=== PATIENT | female | born 1955 | race Caucasian/White ===

== ENCOUNTER 2022-05-31 13:02 | Outpatient (RCR) | payer MEDICARE, BC, SELFPAY ==
[2022-05-31 13:44] LABS: Basophils Percent Auto 0.4 % (0.0-3.0); Eosinophils Percent Auto 0.8 % (0.0-7.0); Hematocrit 38.8 % (33.0-51.0); Hemoglobin* 12.7 gm/dL (12.0-16.0); Immature Granulocytes Abs Auto 2.06 K/uL (0.00-0.30); Lymphocytes Percent Auto 15.1 % (20-44); Mean Corpuscular HGB Conc 33 gm/dL (32-36); Mean Corpuscular Hemoglobin 30 pg (26-34); Mean Corpuscular Volume 91 fL (80-100); Monocytes Percent Auto 25.9 % (0.0-11.0); Neutrophils Percent Auto 49.2 % (42.0-72.0); Platelet Count* 120 K/uL (140-440); RDW Coefficient of Variation % 14.7 % (11.5-15.5); Red Blood Count 4.27 m/uL (4.00-5.20); White Blood Count* 23.96 K/uL (4.50-11.00)
[2022-05-31 13:47] LABS: Albumin* 4.6 g/dL (3.3-5.0); Chloride* 102 mmol/L (96-114)
[2022-05-31 13:48] LABS: Potassium* 3.7 mmol/L (3.6-5.1); Sodium* 138 mmol/L (135-149)
[2022-05-31 13:50] LABS: Aspartate Amino Transferase* 25 U/L (12-35); Bilirubin Total* 0.5 mg/dL (0.1-1.5); Blood Urea Nitrogen* 9 mg/dL (7-30); Carbon Dioxide* 28 mmol/L (20-32); Creatinine* 0.7 mg/dL (0.5-1.5); Estimated Glomerular Filt Rate 94.15; Total Protein* 7.2 g/dL (6.0-8.3)
[2022-05-31 13:51] LABS: Alanine Aminotransferase* 18 U/L (4-35); Alkaline Phosphatase* 68 U/L (40-150); Calcium* 9.6 mg/dL (8.4-10.6); Glucose* 128 mg/dL (60-115); Lactate Dehydrogenase* 536 U/L (313-618)
[2022-05-31 14:17] LABS: Slide Review Acceptable Review (Acceptable); Slide Review Reflex Yes
== END 2022-06-18 23:59 | disposition home or self-care (01) ==
LOC: CCIC 13:02
PROVIDERS: PCP Family Medicine; Visit Provider Internal Medicine Hematology & Oncology
DX: C93.10 Chronic myelomonocytic leukemia not having achieved remission (principal); Z80.6 Family history of leukemia
CPT/HCPCS: 36415; 80053; 83615; 85025; 99212; 99213; 99214

== ENCOUNTER 2023-01-24 11:00 | Outpatient (RCR) | payer MEDICARE, BC, SELFPAY ==
[2022-08-01 09:17] LABS: Basophils Percent Auto 0.5 % (0.0-3.0); Eosinophils Percent Auto 0.7 % (0.0-7.0); Hematocrit 40.3 % (33.0-51.0); Hemoglobin* 13.3 gm/dL (12.0-16.0); Immature Granulocytes Abs Auto 2.49 K/uL (0.00-0.30); Lymphocytes Percent Auto 14.5 % (20-44); Mean Corpuscular HGB Conc 33 gm/dL (32-36); Mean Corpuscular Hemoglobin 30 pg (26-34); Mean Corpuscular Volume 90 fL (80-100); Monocytes Percent Auto 30.5 % (0.0-11.0); Platelet Count* 124 K/uL (140-440); RDW Coefficient of Variation % 14.8 % (11.5-15.5)
[2022-08-01 09:34] LABS: Albumin* 4.8 g/dL (3.3-5.0); Chloride* 103 mmol/L (96-114)
[2022-08-01 09:35] LABS: Potassium* 4.1 mmol/L (3.6-5.1); Sodium* 139 mmol/L (135-149)
[2022-08-01 09:36] LABS: Slide Review Reflex No; White Blood Count* 28.21 K/uL (4.50-11.00)
[2022-08-01 09:37] LABS: Aspartate Amino Transferase* 22 U/L (12-35); Bilirubin Total* 0.4 mg/dL (0.1-1.5); Blood Urea Nitrogen* 13 mg/dL (7-30); Carbon Dioxide* 26 mmol/L (20-32); Creatinine* 0.7 mg/dL (0.5-1.5); Estimated Glomerular Filt Rate 94 ml/min; Total Protein* 8.1 g/dL (6.0-8.3)
[2022-08-01 09:38] LABS: Alanine Aminotransferase* 16 U/L (4-35); Alkaline Phosphatase* 68 U/L (40-150); Calcium* 9.4 mg/dL (8.4-10.6); Glucose* 104 mg/dL (60-115); Lactate Dehydrogenase* 496 U/L (313-618)
--- NOTE | 2022-08-01 12:17 | ONC.NURNOTE ---
results reviewed with Camille HE noted next appts planned for Nov will forward for Dr Guzman review tomorrow
[2022-10-04 10:44] LABS: Basophils Percent Auto 0.5 % (0.0-3.0); Eosinophils Percent Auto 0.8 % (0.0-7.0); Hematocrit 41.1 % (33.0-51.0); Hemoglobin* 13.5 gm/dL (12.0-16.0); Immature Granulocytes Pct Auto 9.8 %; Lymphocytes Percent Auto 14.3 % (20-44); Mean Corpuscular HGB Conc 33 gm/dL (32-36); Mean Corpuscular Hemoglobin 30 pg (26-34); Mean Corpuscular Volume 91 fL (80-100); Monocytes Percent Auto 29.9 % (0.0-11.0); Neutrophils Percent Auto 44.7 % (42.0-72.0); Platelet Count* 142 K/uL (140-440); RDW Coefficient of Variation % 14.5 % (11.5-15.5); Red Blood Count 4.52 m/uL (4.00-5.20)
[2022-10-04 11:09] LABS: Slide Review Reflex Yes; White Blood Count* 27.31 K/uL (4.50-11.00)
[2022-10-04 11:10] LABS: Slide Review Acceptable Review (Acceptable)
[2022-10-04 11:13] LABS: Albumin* 4.9 g/dL (3.3-5.0); Chloride* 103 mmol/L (96-114); Potassium* 4.2 mmol/L (3.6-5.1); Sodium* 140 mmol/L (135-149)
[2022-10-04 11:16] LABS: Alanine Aminotransferase* 22 U/L (4-35); Alkaline Phosphatase* 72 U/L (40-150); Aspartate Amino Transferase* 26 U/L (12-35); Bilirubin Total* 0.5 mg/dL (0.1-1.5); Blood Urea Nitrogen* 13 mg/dL (7-30); Carbon Dioxide* 29 mmol/L (20-32); Creatinine* 0.7 mg/dL (0.5-1.5); Estimated Glomerular Filt Rate 94 ml/min; Glucose* 96 mg/dL (60-115); Lactate Dehydrogenase* 213 U/L (120-246); Total Protein* 8.1 g/dL (6.0-8.3)
[2022-11-29 11:12] LABS: Basophils Percent Auto 0.5 % (0.0-3.0); Eosinophils Percent Auto 0.7 % (0.0-7.0); Hematocrit 39.1 % (33.0-51.0); Hemoglobin* 12.9 gm/dL (12.0-16.0); Immature Granulocytes Pct Auto 9.2 %; Lymphocytes Percent Auto 12.8 % (20-44); Mean Corpuscular HGB Conc 33 gm/dL (32-36); Mean Corpuscular Hemoglobin 30 pg (26-34); Mean Corpuscular Volume 91 fL (80-100); Monocytes Percent Auto 29.6 % (0.0-11.0); Neutrophils Percent Auto 47.2 % (42.0-72.0); Platelet Count* 140 K/uL (140-440); RDW Coefficient of Variation % 14.6 % (11.5-15.5); Red Blood Count 4.32 m/uL (4.00-5.20)
[2022-11-29 11:20] LABS: Albumin* 4.9 g/dL (3.3-5.0); Chloride* 104 mmol/L (96-114); Sodium* 142 mmol/L (135-149)
[2022-11-29 11:23] LABS: Alanine Aminotransferase* 20 U/L (4-35); Alkaline Phosphatase* 80 U/L (40-150); Aspartate Amino Transferase* 25 U/L (12-35); Bilirubin Total* 0.5 mg/dL (0.1-1.5); Blood Urea Nitrogen* 12 mg/dL (7-30); Carbon Dioxide* 32 mmol/L (20-32); Creatinine* 0.7 mg/dL (0.5-1.5); Estimated Glomerular Filt Rate 94 ml/min; Glucose* 106 mg/dL (60-115); Lactate Dehydrogenase* 207 U/L (120-246); Potassium* 4.7 mmol/L (3.6-5.1); Total Protein* 8.1 g/dL (6.0-8.3)
[2022-11-29 11:24] LABS: Calcium* 10.3 mg/dL (8.4-10.6)
[2022-11-29 12:11] LABS: Slide Review Reflex Yes; White Blood Count* 25.94 K/uL (4.50-11.00)
[2022-11-29 12:12] LABS: Slide Review Acceptable Review (Acceptable)
--- NOTE | 2022-11-29 13:28 | ONC.NURNOTE ---
Patient called and given results of CBC. Happy with WBC going down slightly.
[2023-01-24 11:10] LABS: Basophils Percent Auto 0.5 % (0.0-3.0); Eosinophils Percent Auto 0.8 % (0.0-7.0); Hemoglobin* 13.7 gm/dL (12.0-16.0); Immature Granulocytes Pct Auto 8.1 %; Lymphocytes Percent Auto 15.4 % (20-44); Mean Corpuscular HGB Conc 33 gm/dL (32-36); Mean Corpuscular Hemoglobin 29 pg (26-34); Mean Corpuscular Volume 90 fL (80-100); Monocytes Percent Auto 28.7 % (0.0-11.0); Neutrophils Percent Auto 46.5 % (42.0-72.0); Platelet Count* 128 K/uL (140-440); RDW Coefficient of Variation % 14.5 % (11.5-15.5); Red Blood Count 4.68 m/uL (4.00-5.20)
[2023-01-24 11:25] LABS: Albumin* 4.9 g/dL (3.3-5.0)
[2023-01-24 11:26] LABS: Chloride* 102 mmol/L (96-114); Potassium* 4.2 mmol/L (3.6-5.1); Sodium* 140 mmol/L (135-149)
[2023-01-24 11:28] LABS: Aspartate Amino Transferase* 26 U/L (12-35); Bilirubin Total* 0.5 mg/dL (0.1-1.5); Carbon Dioxide* 30 mmol/L (20-32); Creatinine* 0.7 mg/dL (0.5-1.5); Estimated Glomerular Filt Rate 94 ml/min
[2023-01-24 11:29] LABS: Alanine Aminotransferase* 22 U/L (4-35); Alkaline Phosphatase* 61 U/L (40-150); Blood Urea Nitrogen* 13 mg/dL (7-30); Calcium* 10.3 mg/dL (8.4-10.6); Glucose* 103 mg/dL (60-115); Lactate Dehydrogenase* 221 U/L (120-246); Total Protein* 8.4 g/dL (6.0-8.3)
[2023-01-24 11:31] LABS: White Blood Count* 30.22 K/uL (4.50-11.00)
[2023-01-24 12:18] LABS: Slide Review Reflex Yes
[2023-01-24 12:19] LABS: Slide Review Acceptable Review (Acceptable)
== END 2023-01-28 23:59 | disposition home or self-care (01) ==
LOC: CCIC 11:00
PROVIDERS: Internal Medicine Hematology & Oncology; PCP Family Medicine; Referring Provider Family Medicine; Visit Provider Clinical Nurse Specialist
DX: C93.10 Chronic myelomonocytic leukemia not having achieved remission (principal)
CPT/HCPCS: 36415; 80053; 83615; 85025; 99212; 99213; 99214

== ENCOUNTER 2023-09-04 11:15 | Outpatient (RCR) | payer MEDICARE, BC, SELFPAY ==
[2023-03-28 11:24] LABS: Basophils Percent Auto 0.5 % (0.0-3.0); Eosinophils Percent Auto 0.8 % (0.0-7.0); Hematocrit 40.1 % (33.0-51.0); Hemoglobin* 13.1 gm/dL (12.0-16.0); Immature Granulocytes Pct Auto 8.1 %; Lymphocytes Percent Auto 16.4 % (20-44); Mean Corpuscular HGB Conc 33 gm/dL (32-36); Mean Corpuscular Hemoglobin 29 pg (26-34); Mean Corpuscular Volume 90 fL (80-100); Monocytes Percent Auto 29.6 % (0.0-11.0); Neutrophils Percent Auto 44.6 % (42.0-72.0); Platelet Count* 122 K/uL (140-440); RDW Coefficient of Variation % 14.5 % (11.5-15.5); Red Blood Count 4.48 m/uL (4.00-5.20)
[2023-03-28 11:36] LABS: Albumin* 4.9 g/dL (3.3-5.0); Chloride* 102 mmol/L (96-114)
[2023-03-28 11:37] LABS: Potassium* 4.3 mmol/L (3.6-5.1); Sodium* 142 mmol/L (135-149)
[2023-03-28 11:39] LABS: Alkaline Phosphatase* 59 U/L (40-150); Aspartate Amino Transferase* 23 U/L (12-35); Bilirubin Total* 0.5 mg/dL (0.1-1.5); Blood Urea Nitrogen* 15 mg/dL (7-30); Carbon Dioxide* 30 mmol/L (20-32); Creatinine* 0.7 mg/dL (0.5-1.5); Estimated Glomerular Filt Rate 94 ml/min; Lactate Dehydrogenase* 218 U/L (120-246); Total Protein* 7.9 g/dL (6.0-8.3)
[2023-03-28 11:40] LABS: Alanine Aminotransferase* 20 U/L (4-35); Calcium* 10.1 mg/dL (8.4-10.6); Glucose* 101 mg/dL (60-115)
[2023-03-28 11:46] LABS: Slide Review Reflex Yes; White Blood Count* 26.55 K/uL (4.50-11.00)
[2023-03-28 11:48] LABS: Slide Review Acceptable Review (Acceptable)
--- NOTE | 2023-03-28 13:32 | ONC.NURNOTE ---
Addendum entered by Gema Diallo RN 04/09/23 11:58: Message left to call to set up 6 mth follow up- there was no appt with provider on 04/03/23 Original Note: Lab results noted as stable and called to [facility]- message left on voicemail she has provider appt next week
--- NOTE | 2023-04-09 12:14 | ONC.NURNOTE ---
provider and lab appt rescheduled for May per patient request and noted stable lab results from this month patient has a family emergency to attend to and cancelled her March appt
[2023-06-05 10:20] LABS: Basophils Percent Auto 0.6 % (0.0-3.0); Eosinophils Percent Auto 0.8 % (0.0-7.0); Hematocrit 40.9 % (33.0-51.0); Hemoglobin* 13.4 gm/dL (12.0-16.0); Immature Granulocytes Pct Auto 8.1 %; Lymphocytes Percent Auto 14.7 % (20-44); Mean Corpuscular HGB Conc 33 gm/dL (32-36); Mean Corpuscular Hemoglobin 29 pg (26-34); Mean Corpuscular Volume 89 fL (80-100); Neutrophils Percent Auto 43.8 % (42.0-72.0); Platelet Count* 122 K/uL (140-440); RDW Coefficient of Variation % 14.8 % (11.5-15.5); Red Blood Count 4.58 m/uL (4.00-5.20)
[2023-06-05 10:42] LABS: Albumin* 4.7 g/dL (3.3-5.0); Chloride* 100 mmol/L (96-114); Potassium* 4.2 mmol/L (3.6-5.1); Sodium* 138 mmol/L (135-149)
[2023-06-05 10:44] LABS: Bilirubin Total* 0.6 mg/dL (0.1-1.5); Carbon Dioxide* 29 mmol/L (20-32); Creatinine* 0.7 mg/dL (0.5-1.5); Estimated Glomerular Filt Rate 94 ml/min
[2023-06-05 10:45] LABS: Alanine Aminotransferase* 20 U/L (4-35); Alkaline Phosphatase* 59 U/L (40-150); Aspartate Amino Transferase* 25 U/L (12-35); Blood Urea Nitrogen* 11 mg/dL (7-30); Calcium* 9.7 mg/dL (8.4-10.6); Glucose* 102 mg/dL (60-115); Lactate Dehydrogenase* 222 U/L (120-246)
[2023-06-05 10:46] LABS: Slide Review Reflex Yes; White Blood Count* 28.89 K/uL (4.50-11.00)
[2023-06-05 10:47] LABS: Slide Review Acceptable Review (Acceptable)
--- NOTE | 2023-09-03 14:20 | ONC.NURNOTE ---
Attempted to call patient to reminder her of her 3 month lab follow up. Phone is temporarily out of service.
[2023-09-04 11:34] LABS: Basophils Percent Auto 0.5 % (0.0-3.0); Eosinophils Percent Auto 0.6 % (0.0-7.0); Hematocrit 41.9 % (33.0-51.0); Hemoglobin* 13.6 gm/dL (12.0-16.0); Immature Granulocytes Pct Auto 8.7 %; Lymphocytes Percent Auto 15.8 % (20-44); Mean Corpuscular HGB Conc 33 gm/dL (32-36); Mean Corpuscular Hemoglobin 30 pg (26-34); Mean Corpuscular Volume 91 fL (80-100); Monocytes Percent Auto 27.9 % (0.0-11.0); Neutrophils Percent Auto 46.5 % (42.0-72.0); Platelet Count* 128 K/uL (140-440); RDW Coefficient of Variation % 14.4 % (11.5-15.5)
[2023-09-04 11:38] LABS: Slide Review Reflex Yes; White Blood Count* 27.79 K/uL (4.50-11.00)
[2023-09-04 11:48] LABS: Albumin* 4.9 g/dL (3.3-5.0); Chloride* 102 mmol/L (96-114)
[2023-09-04 11:49] LABS: Potassium* 4.4 mmol/L (3.6-5.1); Sodium* 141 mmol/L (135-149)
[2023-09-04 11:51] LABS: Alkaline Phosphatase* 57 U/L (40-150); Anion Gap 11 mEq/L (7-15); Aspartate Amino Transferase* 30 U/L (12-35); Bilirubin Total* 0.5 mg/dL (0.1-1.5); Blood Urea Nitrogen* 14 mg/dL (7-30); Carbon Dioxide* 28 mmol/L (20-32); Creatinine* 0.8 mg/dL (0.5-1.5); Estimated Glomerular Filt Rate 79 ml/min; Glucose* 107 mg/dL (60-115); Lactate Dehydrogenase* 231 U/L (120-246); Total Protein* 8.3 g/dL (6.0-8.3)
[2023-09-04 11:52] LABS: Alanine Aminotransferase* 18 U/L (4-35); Calcium* 10.2 mg/dL (8.4-10.6)
[2023-09-04 12:00] LABS: Slide Review Acceptable Review (Acceptable)
== END 2023-09-24 23:59 | disposition home or self-care (01) ==
LOC: CCIC 11:15
PROVIDERS: Clinical Nurse Specialist; PCP Family Medicine; Referring Provider Family Medicine; Visit Provider Internal Medicine Hematology & Oncology
DX: C93.10 Chronic myelomonocytic leukemia not having achieved remission (principal)
CPT/HCPCS: 36415; 80053; 83615; 85025; 99212; 99213; 99214

== ENCOUNTER 2024-06-03 12:15 | Outpatient (RCR) | payer MEDICARE, BC, SELFPAY ==
[2023-12-10 10:45] LABS: Basophils Percent Auto 0.7 % (0.0-3.0); Eosinophils Percent Auto 0.6 % (0.0-7.0); Hematocrit 42.3 % (33.0-51.0); Hemoglobin* 13.9 gm/dL (12.0-16.0); Immature Granulocytes Pct Auto 7.7 %; Lymphocytes Percent Auto 14.5 % (20-44); Mean Corpuscular HGB Conc 33 gm/dL (32-36); Mean Corpuscular Hemoglobin 29 pg (26-34); Mean Corpuscular Volume 90 fL (80-100); Monocytes Percent Auto 28.1 % (0.0-11.0); Neutrophils Percent Auto 48.4 % (42.0-72.0); Platelet Count* 126 K/uL (140-440); Red Blood Count 4.72 m/uL (4.00-5.20)
[2023-12-10 10:48] LABS: Slide Review Reflex Yes; White Blood Count* 28.48 K/uL (4.50-11.00)
[2023-12-10 10:49] LABS: Slide Review Acceptable Review (Acceptable)
[2023-12-10 10:58] LABS: Chloride* 102 mmol/L (96-114); Potassium* 4.4 mmol/L (3.6-5.1); Sodium* 140 mmol/L (135-149)
[2023-12-10 11:00] LABS: Anion Gap 12 mEq/L (7-15); Aspartate Amino Transferase* 25 U/L (12-35); Bilirubin Total* 0.4 mg/dL (0.1-1.5); Carbon Dioxide* 26 mmol/L (20-32); Creatinine* 0.6 mg/dL (0.5-1.5); Estimated Glomerular Filt Rate 97 ml/min; Total Protein* 8.3 g/dL (6.0-8.3)
[2023-12-10 11:01] LABS: Alanine Aminotransferase* 21 U/L (4-35); Alkaline Phosphatase* 60 U/L (40-150); Blood Urea Nitrogen* 12 mg/dL (7-30); Calcium* 10.2 mg/dL (8.4-10.6); Glucose* 114 mg/dL (60-115); Lactate Dehydrogenase* 214 U/L (120-246)
[2024-03-10 09:22] LABS: Basophils Percent Auto 0.5 % (0.0-3.0); Eosinophils Percent Auto 0.6 % (0.0-7.0); Hemoglobin* 13.6 gm/dL (12.0-16.0); Immature Granulocytes Pct Auto 8.5 %; Lymphocytes Percent Auto 11.7 % (20-44); Mean Corpuscular HGB Conc 32 gm/dL (32-36); Mean Corpuscular Hemoglobin 30 pg (26-34); Mean Corpuscular Volume 92 fL (80-100); Monocytes Percent Auto 33.7 % (0.0-11.0); Platelet Count* 122 K/uL (140-440); RDW Coefficient of Variation % 14.8 % (11.5-15.5); Red Blood Count 4.57 m/uL (4.00-5.20)
[2024-03-10 09:33] LABS: Albumin* 4.8 g/dL (3.3-5.0); Chloride* 106 mmol/L (96-114); Potassium* 4.5 mmol/L (3.6-5.1); Sodium* 141 mmol/L (135-149)
[2024-03-10 09:35] LABS: Bilirubin Total* 0.5 mg/dL (0.1-1.5); Creatinine* 0.6 mg/dL (0.5-1.5); Estimated Glomerular Filt Rate 97 ml/min
[2024-03-10 09:36] LABS: Alanine Aminotransferase* 26 U/L (4-35); Alkaline Phosphatase* 66 U/L (40-150); Anion Gap 7 mEq/L (7-15); Aspartate Amino Transferase* 33 U/L (12-35); Blood Urea Nitrogen* 12 mg/dL (7-30); Calcium* 9.8 mg/dL (8.4-10.6); Carbon Dioxide* 28 mmol/L (20-32); Glucose* 101 mg/dL (60-115); Lactate Dehydrogenase* 235 U/L (120-246); Total Protein* 8.1 g/dL (6.0-8.3)
[2024-03-10 10:09] LABS: Slide Review Reflex Yes; White Blood Count* 33.04 K/uL (4.50-11.00)
[2024-03-10 10:10] LABS: Slide Review Acceptable Review (Acceptable)
--- NOTE | 2024-03-11 15:17 | ONC.NURNOTE ---
lab results called to [facility] patient reports no B symptoms- no night sweats, weight loss, change in appetite or activity
[2024-06-03 12:25] LABS: Basophils Percent Auto 0.5 % (0.0-3.0); Eosinophils Percent Auto 0.6 % (0.0-7.0); Hemoglobin* 13.3 gm/dL (12.0-16.0); Immature Granulocytes Pct Auto 8.2 %; Lymphocytes Percent Auto 13.5 % (20-44); Mean Corpuscular HGB Conc 32 gm/dL (32-36); Mean Corpuscular Hemoglobin 29 pg (26-34); Mean Corpuscular Volume 90 fL (80-100); Monocytes Percent Auto 30.1 % (0.0-11.0); Neutrophils Percent Auto 47.1 % (42.0-72.0); Platelet Count* 125 K/uL (140-440); RDW Coefficient of Variation % 14.6 % (11.5-15.5); Red Blood Count 4.57 m/uL (4.00-5.20)
[2024-06-03 12:36] LABS: Chloride* 104 mmol/L (96-114)
[2024-06-03 12:37] LABS: Potassium* 4.4 mmol/L (3.6-5.1); Sodium* 139 mmol/L (135-149)
[2024-06-03 12:39] LABS: Anion Gap 9 mEq/L (7-15); Aspartate Amino Transferase* 23 U/L (12-35); Bilirubin Total* 0.6 mg/dL (0.1-1.5); Carbon Dioxide* 26 mmol/L (20-32); Creatinine* 0.6 mg/dL (0.5-1.5); Estimated Glomerular Filt Rate 97 ml/min
[2024-06-03 12:40] LABS: Alanine Aminotransferase* 17 U/L (4-35); Alkaline Phosphatase* 65 U/L (40-150); Blood Urea Nitrogen* 11 mg/dL (7-30); Calcium* 10.3 mg/dL (8.4-10.6); Glucose* 98 mg/dL (60-115); Lactate Dehydrogenase* 223 U/L (120-246)
[2024-06-03 13:00] LABS: Slide Review Acceptable Review (Acceptable); Slide Review Reflex Yes; White Blood Count* 29.79 K/uL (4.50-11.00)
== END 2024-06-07 23:59 | disposition home or self-care (01) ==
LOC: CCIC 12:15
PROVIDERS: PCP Family Medicine; Referring Provider Family Medicine; Visit Provider Internal Medicine Hematology & Oncology
DX: C93.10 Chronic myelomonocytic leukemia not having achieved remission (principal); E03.9 Hypothyroidism, unspecified; L40.9 Psoriasis, unspecified; Z83.2 Family history of diseases of the blood and blood-forming organs and certain disorders involving the immune mechanism
CPT/HCPCS: 36415; 80053; 83615; 85025; 99213; 99214; G0463

== ENCOUNTER 2024-12-02 10:00 | Outpatient (RCR) | payer MEDICARE, BC, SELFPAY ==
[2024-09-02 10:23] LABS: Basophils Percent Auto 0.4 % (0.0-3.0); Eosinophils Percent Auto 0.7 % (0.0-7.0); Hematocrit 42.8 % (33.0-51.0); Hemoglobin* 14.1 gm/dL (12.0-16.0); Immature Granulocytes Pct Auto 8.6 %; Lymphocytes Percent Auto 14.2 % (20-44); Mean Corpuscular HGB Conc 33 gm/dL (32-36); Mean Corpuscular Hemoglobin 30 pg (26-34); Mean Corpuscular Volume 91 fL (80-100); Neutrophils Percent Auto 46.1 % (42.0-72.0); Platelet Count* 112 K/uL (140-440); RDW Coefficient of Variation % 14.3 % (11.5-15.5); Red Blood Count 4.71 m/uL (4.00-5.20)
[2024-09-02 10:37] LABS: Alkaline Phosphatase* 63 U/L (40-150); Aspartate Amino Transferase* 24 U/L (12-35); Bilirubin Total* 0.5 mg/dL (0.1-1.5); Carbon Dioxide* 27 mmol/L (20-32); Creatinine* 0.7 mg/dL (0.5-1.5); Estimated Glomerular Filt Rate 92 ml/min; Total Protein* 8.3 g/dL (6.0-8.3)
[2024-09-02 10:38] LABS: Blood Urea Nitrogen* 9 mg/dL (7-30); Glucose* 101 mg/dL (60-115)
[2024-09-02 10:46] LABS: Anion Gap 10 mEq/L (7-15); Chloride* 98 mmol/L (96-114); Potassium* 4.3 mmol/L (3.6-5.1); Sodium* 135 mmol/L (135-149)
[2024-09-02 10:49] LABS: Alanine Aminotransferase* 16 U/L (4-35); Calcium* 9.9 mg/dL (8.4-10.6); Lactate Dehydrogenase* 215 U/L (120-246)
[2024-09-02 10:50] LABS: Slide Review Reflex Yes; White Blood Count* 30.69 K/uL (4.50-11.00)
[2024-09-02 10:51] LABS: Slide Review Acceptable Review (Acceptable)
--- NOTE | 2024-09-02 11:50 | ONC.NURNOTE ---
Lab results reviewed with [facility] denies any night sweats, weight loss, fevers or change in appetite
[2024-12-02 10:33] LABS: Basophils Percent Auto 0.4 % (0.0-3.0); Eosinophils Percent Auto 0.5 % (0.0-7.0); Hematocrit 40.1 % (33.0-51.0); Immature Granulocytes Pct Auto 8.7 %; Lymphocytes Percent Auto 12.5 % (20-44); Mean Corpuscular HGB Conc 32 gm/dL (32-36); Mean Corpuscular Hemoglobin 29 pg (26-34); Mean Corpuscular Volume 90 fL (80-100); Monocytes Percent Auto 31.1 % (0.0-11.0); Neutrophils Percent Auto 46.8 % (42.0-72.0); Platelet Count* 102 K/uL (140-440); RDW Coefficient of Variation % 14.6 % (11.5-15.5); Red Blood Count 4.45 m/uL (4.00-5.20)
[2024-12-02 10:46] LABS: Albumin* 4.6 g/dL (3.3-5.0); Chloride* 102 mmol/L (96-114); Slide Review Reflex No; Sodium* 139 mmol/L (135-149); White Blood Count* 29.57 K/uL (4.50-11.00)
[2024-12-02 10:47] LABS: Potassium* 4.1 mmol/L (3.6-5.1)
[2024-12-02 10:49] LABS: Alkaline Phosphatase* 50 U/L (40-150); Anion Gap 8 mEq/L (7-15); Aspartate Amino Transferase* 19 U/L (12-35); Bilirubin Total* 0.5 mg/dL (0.1-1.5); Blood Urea Nitrogen* 9 mg/dL (7-30); Carbon Dioxide* 29 mmol/L (20-32); Creatinine* 0.7 mg/dL (0.5-1.5); Estimated Glomerular Filt Rate 92 ml/min; Glucose* 99 mg/dL (60-115); Lactate Dehydrogenase* 211 U/L (120-246); Total Protein* 7.4 g/dL (6.0-8.3)
[2024-12-02 10:50] LABS: Alanine Aminotransferase* 16 U/L (4-35); Calcium* 9.9 mg/dL (8.4-10.6)
[2024-12-02 12:18] LABS: C Reactive Protein* 0.9 mg/dL (0.5-1.0)
[2024-12-02 12:46] LABS: Thyroid Stimulating Hormone* 0.308 uIU/mL (0.270-4.20)
[2024-12-02 12:56] LABS: Erythrocyte SedimentationRate* 4 mm/hr (2-20)
[2024-12-04 08:18] LABS: Anti-Nuclear Ab(ANA)IgG ELISA None Detected (None Detected)
== END 2025-03-01 23:59 | disposition home or self-care (01) ==
LOC: CCIC 10:00
PROVIDERS: Clinical Nurse Specialist; PCP Family Medicine; Referring Provider Family Medicine; Visit Provider Internal Medicine Hematology & Oncology
DX: C93.10 Chronic myelomonocytic leukemia not having achieved remission (principal); E03.9 Hypothyroidism, unspecified; L40.9 Psoriasis, unspecified; Z83.2 Family history of diseases of the blood and blood-forming organs and certain disorders involving the immune mechanism
CPT/HCPCS: 36415; 80053; 83615; 84443; 85025; 85651; 86038; 86140; 99214; G0463

== ENCOUNTER 2025-06-09 12:00 | Outpatient (RCR) | payer MEDICARE, BC, SELFPAY ==
[2025-03-03 10:34] LABS: Hematocrit* 40.6 % (33.0-51.0); Hemoglobin* 13.2 gm/dL (12.0-16.0); Immature Granulocytes Pct Auto 7.1 %; Mean Corpuscular HGB Conc 33 gm/dL (32-36); Mean Corpuscular Hemoglobin 30 pg (26-34); Mean Corpuscular Volume 91 fL (80-100); RDW Coefficient of Variation % 14.5 % (11.5-15.5); Red Blood Count* 4.45 m/uL (4.00-5.20); White Blood Count* 24.67 K/uL (4.50-11.00)
[2025-03-03 10:39] LABS: Immature Granulocytes Abs Auto 1.80 K/uL (0.00-0.30); Lymphocytes Absolute Auto 3.70 K/uL (0.90-2.90)
[2025-03-03 10:40] LABS: Slide Review Reflex No
[2025-03-03 10:50] LABS: Albumin* 5.0 g/dL (3.3-5.0); Chloride* 101 mmol/L (96-114)
[2025-03-03 10:51] LABS: Potassium* 4.7 mmol/L (3.6-5.1); Sodium* 140 mmol/L (135-149)
[2025-03-03 10:53] LABS: Alanine Aminotransferase* 25 U/L (4-35); Alkaline Phosphatase* 60 U/L (40-150); Anion Gap 9 mEq/L (7-15); Aspartate Amino Transferase* 39 U/L (12-35); Bilirubin Total* 0.6 mg/dL (0.1-1.5); Blood Urea Nitrogen* 11 mg/dL (7-30); Calcium* 10.1 mg/dL (8.4-10.6); Carbon Dioxide* 30 mmol/L (20-32); Creatinine* 0.7 mg/dL (0.5-1.5); Estimated Glomerular Filt Rate 92 ml/min; Glucose* 96 mg/dL (60-115); Total Protein* 7.8 g/dL (6.0-8.3)
[2025-06-09 12:05] LABS: Albumin* 5.1 g/dL (3.3-5.0); Chloride* 101 mmol/L (96-114); Sodium* 138 mmol/L (135-149)
[2025-06-09 12:06] LABS: Potassium* 4.1 mmol/L (3.6-5.1)
[2025-06-09 12:08] LABS: Alanine Aminotransferase* 29 U/L (4-35); Alkaline Phosphatase* 69 U/L (40-150); Anion Gap 8 mEq/L (7-15); Aspartate Amino Transferase* 39 U/L (12-35); Bilirubin Total* 0.6 mg/dL (0.1-1.5); Blood Urea Nitrogen* 10 mg/dL (7-30); Carbon Dioxide* 29 mmol/L (20-32); Creatinine* 0.7 mg/dL (0.5-1.5); Estimated Glomerular Filt Rate 92 ml/min; Total Protein* 8.3 g/dL (6.0-8.3)
[2025-06-09 12:09] LABS: Calcium* 9.9 mg/dL (8.4-10.6); Glucose* 101 mg/dL (60-115)
[2025-06-09 12:11] LABS: Hematocrit* 42.8 % (33.0-51.0); Hemoglobin* 14.0 gm/dL (12.0-16.0); Immature Granulocytes Pct Auto 7.1 %; Mean Corpuscular HGB Conc 33 gm/dL (32-36); Mean Corpuscular Hemoglobin 29 pg (26-34); Mean Corpuscular Volume 90 fL (80-100); RDW Coefficient of Variation % 14.0 % (11.5-15.5); Red Blood Count* 4.77 m/uL (4.00-5.20)
[2025-06-09 12:21] LABS: Immature Granulocytes Abs Auto 1.90 K/uL (0.00-0.30); Lymphocytes Absolute Auto 3.40 K/uL (0.90-2.90)
[2025-06-09 12:22] LABS: Slide Review Reflex No; White Blood Count* 26.47 K/uL (4.50-11.00)
== END 2025-08-30 23:59 | disposition home or self-care (01) ==
LOC: CCIC 12:00
PROVIDERS: PCP Family Medicine; Referring Provider Family Medicine; Visit Provider Internal Medicine Hematology & Oncology
DX: C93.10 Chronic myelomonocytic leukemia not having achieved remission (principal); E03.9 Hypothyroidism, unspecified; Z80.6 Family history of leukemia; R19.7 Diarrhea, unspecified
CPT/HCPCS: 36415; 80053; 83615; 85025; 99213; 99214; G0463

== ENCOUNTER 2025-06-12 13:36 | Outpatient (CLI) | payer MEDICARE, BC, SELFPAY ==
--- NOTE | 2025-06-12 14:21 | P.ANES_ITS ---
Anesthesia Charges Start Date/Time Anesthesia Start Date: 06/12/25 Anesthesia Start Time: 14:35 Stop Date/Time Anesthesia Stop Date: 06/12/25 Anesthesia Stop Time: 14:56 Summary Extremes of Age - Over 70 or under 1: MDA Coding CPT Codes CPT Codes: ANES UPR GI NDSC PX NOS - 28387 ([id number]) P2 - PATIENT W/MILD SYST DISEASE, QK - TELEVISION MAINTENANCE MAN 2-4 CNCRNT ANES PROC, QX - SECURITY SPECIALIST SVC W/ MD MED DIRECTION Additional Codes: Summary - Extremes of Age - Over 70 or under 1: MDA ([id number])
--- NOTE | 2025-06-12 14:21 | W.ANESCHARGE ---
Anesthesia Charges Start Date/Time Anesthesia Start Date: 06/12/25 Anesthesia Start Time: 14:35 Stop Date/Time Anesthesia Stop Date: 06/12/25 Anesthesia Stop Time: 14:56 Summary Extremes of Age - Over 70 or under 1: MDA Coding CPT Codes CPT Codes: ANES UPR GI NDSC PX NOS - 47912 ([id number]) P2 - PATIENT W/MILD SYST DISEASE, QK - ELECTRONICS MAINTENANCE TECHNICIAN 2-4 CNCRNT ANES PROC, QX - CROP RESEARCH SCIENTIST SVC W/ MD MED DIRECTION Additional Codes: Summary - Extremes of Age - Over 70 or under 1: MDA ([id number])
--- NOTE | 2025-06-12 14:52 | P.ANES_ITS ---
Anesthesia Charges Start Date/Time Anesthesia Start Date: 06/12/25 Anesthesia Start Time: 14:35 Stop Date/Time Anesthesia Stop Date: 06/12/25 Anesthesia Stop Time: 14:56 Coding CPT Codes CPT Codes: ANES UPR GI NDSC PX NOS - 41182 ([id number]) P2 - PATIENT W/MILD SYST DISEASE, QX - VACUUM TESTER CANS SVC W/ MD MED DIRECTION, QK - CURRENCY COUNTER 2-4 CNCRNT ANES PROC
--- NOTE | 2025-06-12 14:52 | W.ANESCHARGE ---
Anesthesia Charges Start Date/Time Anesthesia Start Date: 06/12/25 Anesthesia Start Time: 14:35 Stop Date/Time Anesthesia Stop Date: 06/12/25 Anesthesia Stop Time: 14:56 Coding CPT Codes CPT Codes: ANES UPR GI NDSC PX NOS - 05612 ([id number]) P2 - PATIENT W/MILD SYST DISEASE, QX - MOLD SHAKER SVC W/ MD MED DIRECTION, QK - DISTRICT ENGINEER 2-4 CNCRNT ANES PROC
== END 2025-06-12 13:37 | disposition home or self-care (01) ==
LOC: OP CLINIC 13:38
PROVIDERS: PCP Family Medicine; Visit Provider Internal Medicine Gastroenterology
DX: K25.4 Chronic or unspecified gastric ulcer with hemorrhage (principal); K26.9 Duodenal ulcer, unspecified as acute or chronic, without hemorrhage or perforation; K22.89 Other specified disease of esophagus; K92.1 Melena
CPT/HCPCS: 00731; 43239; 88305; 99100; J2704; J3490